=== PATIENT | male | born 1960 | race Caucasian/White ===

== ENCOUNTER 2017-06-26 08:43 | Day surgery (SDC) | payer OTHER ==
[2017-01-19 09:46] VITALS: BMI 29.5
[2017-06-26] MEDS ORDERED: Lactated Ringer's 1,000 ML IV ONE (09:15)
[2017-06-26] MEDS ORDERED: Lidocaine 2% MPF (5 ml) Inj ONE (10:18)
[2017-06-26] MEDS ORDERED: Propofol 10 mg/ml Inj (20 ML) ONE (10:18)
[2017-06-26 11:18] VITALS: TEMP 97
[2017-06-26 11:19] VITALS: BP 111/69; PULSE 74; RESP 18; O2SAT 98
== END 2017-06-26 11:28 | disposition home or self-care (01) ==
LOC: H.ENDO 08:43
PROVIDERS: ATTEND Internal Medicine Gastroenterology
DX: Z12.11 Encounter for screening for malignant neoplasm of colon (principal); E78.5 Hyperlipidemia, unspecified; I10 Essential (primary) hypertension; K64.8 Other hemorrhoids; K20.9 Esophagitis, unspecified; K29.70 Gastritis, unspecified, without bleeding
CPT/HCPCS: 43239; 45378; 88305; J2704; J3010; J7120